=== PATIENT | female | born 1995 | race Caucasian/White ===

== ENCOUNTER 2020-02-15 14:35 | Emergency (ER) | payer OTHER, SELFPAY ==
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
[2020-02-15 14:59] VITALS: PULSE 24
[2020-02-15] MEDS: LORazepam 1 MG TABLET PO (15:18)
[2020-02-15 15:23] VITALS: BP 121/85; PULSE 119; RESP 26; TEMP 37; O2SAT 100; BMI 45.3
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
[2020-02-15 15:50] LABS: Basophils Percent Auto 0.4 % (0-2); Eosinophils Percent Auto 0.6 % (0-4); Hematocrit 43.2 % (37-47); Hemoglobin 14.9 g/dl (12.0-16.0); Imm Gran Abs Auto 0.02 X10*3/uL (0.00-0.03); Imm Gran Pct Auto 0.3 % (0.0-0.4); Lymphocytes Absolute Auto 1.5 X10*3/uL (1.2-4.9); Lymphocytes Percent Auto 20.8 % (20-40); MANUAL DIFF FLAG NO; Mean Corpuscular HGB Conc 34.5 g/dl (31.0-35.0); Mean Corpuscular Hemoglobin 29.3 pg (27.0-33.0); Mean Corpuscular Volume 84.9 fL (80-98); Mean Platelet Volume 11.2 fL (9.4-12.3); Monocytes Absolute Auto 0.4 X10*3/uL (0.1-1.2); Monocytes Percent Auto 6.2 % (2-11); Neutrophils Absolute Auto 5.1 X10*3/uL (2.0-8.3); Neutrophils Percent Auto 71.7 % (45-73); Platelet Count 217 X10*3/uL (160-400); Red Blood Count 5.09 X10*6/uL (4.20-5.50); Red Cell Distribution Width 11.6 % (11.0-16.0); White Blood Count 7.1 X10*3/uL (4.8-10.8)
[2020-02-15 15:50] LABS: Glucose Urine UA NEG (NEG); Leukocyte Esterase Urine NEG (NEG); Nitrite Urine NEG (NEG); Urine Blood NEG (NEG); Urine Ketones NEG (NEG); Urine Protein NEG (NEG-TRACE)
[2020-02-15 15:51] LABS: Appearance Urine CLEAR; Color Urine STRAW
[2020-02-15 15:52] LABS: UPreg QC Valid YES; Urine Pregnancy NEGATIVE (NEGATIVE)
[2020-02-15 16:00] VITALS: RESP 20
[2020-02-15 16:06] LABS: RBC Urine 0 /HPF (0); Squamous Epithelial Cell Urine 2+ /LPF; WBC Urine 0 /HPF (0-4)
[2020-02-15 16:09] LABS: Amphetamine Screen Urine Not Detected (Not Detect); Barbiturates, Urine Not Detected (Not Detect); Benzodiazepines Screen Urine Not Detected (Not Detect); Cannabinoid Screen Urine Not Detected (Not Detect); Cocaine Screen Urine Not Detected (Not Detect); Opiate Screen Urine Not Detected (Not Detect); Phencyclidine Screen Urine Not Detected (Not Detect)
[2020-02-15 16:15] LABS: Ethanol < 10 mg/dL
[2020-02-15 16:19] LABS: IDNOW Serial# 9DD0AD1C
[2020-02-15 16:19] LABS: Alanine Aminotransferase 18 U/L (0-31); Albumin Level 4.3 g/dL (3.5-5.0); Alkaline Phosphatase 39 U/L (39-117); Anion Gap 10 (12-20); Aspartate Amino Transferase 17 U/L (5-31); Bilirubin Total 0.4 mg/dL (0.0-1.0); Blood Urea Nitrogen 13 mg/dL (9-16); Calcium 9.3 mg/dL (8.4-10.2); Carbon Dioxide 26 mmol/L (22-29); Chloride 107 mmol/L (96-108); Creatinine Clr Calc Pharmacy 130.9; Estimated Glomerular Filt Rate > 60; Glucose Random 66 mg/dL (60-115); Potassium 3.9 mmol/l (3.3-5.1); Sodium 139 mmol/L (135-145); Total Protein 7.5 g/dL (6.5-8.0)
[2020-02-15 16:20] LABS: COVID-19 Test Negative (Negative)
--- NOTE | 2020-02-15 16:52 | PC.NURSE ---
pt reports good effect from ativan given. In room, eating sandwich, now w/ CARE team again.
--- NOTE | 2020-02-15 17:05 | MHC.CARE ---
Pt evaluated by CARE team with disposition for inpt psych admission. Pt has been placed on a Section 12 for safety and containment and will remain in ED until bed placement is secured.
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
[2020-02-15 18:00] VITALS: RESP 18
--- NOTE | 2020-02-15 20:25 | PC.NURSE ---
Patient is currently in her bed, no distress reported, calm and quiet, patient was earlier up on phone, will continue to monitor.
[2020-02-15 22:00] VITALS: BP 123/71; PULSE 89; RESP 18; TEMP 36.7; O2SAT 97
[2020-02-15] MEDS: diphenhydrAMINE HCL 25 MG TABLET PO (23:00)
--- NOTE | 2020-02-15 23:12 | PC.NURSE ---
Patient in bed resting, reported trouble sleeping, requested medication/provider notified/ordered Benadryl 25 mg/administered as ordered, will continue to monitor.
[2020-02-16] VITALS (7 sets, daily range): BP systolic 125–132; BP diastolic 76–78; PULSE 87–99; RESP 16–20; TEMP 36.8–36.9; O2SAT 97–99
--- NOTE | 2020-02-16 01:14 | PC.NURSE ---
Patient in bed appears sleeping, no distress observed/reported, respiration +/=/non-labored bilaterally, will continue to monitor.
--- NOTE | 2020-02-16 07:14 | PC.NURSE ---
Report received from DELICIA Kay. Pt resting, resp unlabored.
--- NOTE | 2020-02-16 15:29 | PC.NURSE ---
Pt asking when she will be admitted [facility]ad [facility]- aware that she may not be. Pt requesting to speak to Care team if she is not accepted- care team called to notify.
--- NOTE | 2020-02-16 16:50 | PC.NURSE ---
Patient calm and quiet, on phone few times, appetite good, elimination, no distress reported, mood pleasant, affect congruent to mood, thought content and process linear, will continue to monitor.
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
--- NOTE | 2020-02-17 09:43 | MHC.CARE ---
0930 Call to patient's health insurance to cancel authorization [id number] for inpatient admission. Spoke to Candice.
== END 2020-02-17 02:34 | disposition home or self-care (01) ==
LOC: HO.ED 02-16 22:12 → HO.PM5 02-17 00:32
PROVIDERS: Nurse Practitioner Primary Care; Emergency Provider Emergency Medicine
DX: F33.1 Major depressive disorder, recurrent, moderate (principal); R45.851 Suicidal ideations; F41.1 Generalized anxiety disorder; F43.0 Acute stress reaction; Z20.828 Contact with and (suspected) exposure to other viral communicable diseases
CPT/HCPCS: 36415; 80053; 80307; 80320; 81001; 81025; 85025; 87635; 99285; Q0163